=== PATIENT | female | born 1980 | race Caucasian/White ===

== ENCOUNTER → 2018-06-19 | Day surgery (SDC) | payer MEDICAID ==
[~2018-06-19] MED LIST: ALBUTEROL 0.083% (NEB) 2.5 MG/3 ML AMP HHN; BUPIVACAINE 0.5%/EPI (SDV) 30 ML INJ; DIPHENHYDRAMINE 50 MG INJ IV; EPHEDrine 25 MG/5 ML SYG; FAMOTIDINE 20 MG INJ; FENTAnyl 50 MCG/ML VIAL; FENTAnyl 50 MCG/ML VIAL IV; HYDROmorphONE 1 MG/5 ML IV SYRINGE IV; LABETALOL HCL 20MG INJ IV; LIDOCAINE 2% (SDV) 5 ML INJ; MEPERIDINE 25 MG INJ IV; MIDAZOLAM 1 MG/ML 2 ML INJ; ONDANSETRON 4 MG INJ; ONDANSETRON 4 MG INJ IV; OXYCODONE/ACETAMINOPHEN (5/325) TAB PO; PROPOFOL 40 ML; morphine (1 MG/ML) 10ML SYRINGE IV
[2018-06-19] MEDS: ACETAMINOPHEN 500 MG TAB PO (09:01)
[2018-06-19] MEDS: BUPIVACAINE 0.5% (SDV) 30 ML INJ (10:57)
== END | disposition home or self-care (01) ==
LOC: SDS 07:52
DX: D24.2 Benign neoplasm of left breast (principal)
CPT/HCPCS: 19120; 88307